=== PATIENT | male | born 1985 | race Caucasian/White ===

== ENCOUNTER 2024-03-15 10:31 | Outpatient (AMB) | payer MEDICAID, SELFPAY ==
--- NOTE | 2024-03-15 10:41 | A.OFFVIS_ITS ---
Vital Signs 3 03/15/24 10:48 Height 6 ft 2 in Weight 303 lb BMI 38.9 BP 145/74 H Blood Pressure Location Lt brachial Position Sitting Respiration 16 Pulse 87 Pulse Source Pulse Oximeter Pulse Oximetry (%) 97 Oxygen Delivery Method Room Air Intake Visit Reasons: Lumbar Radiculitis Allergies No Known Allergies Allergy (Verified 03/15/24 10:49) Medication List - Last Reconciled 03/15/24 by Renu Mayers LPN diazepam 2 mg PO DAILY erenumab-aooe (Aimovig Autoinjector) 70 mg subcut ONCE famotidine 40 mg PO BID gabapentin 600 mg PO DAILY lamotrigine 100 mg PO BID lithium carbonate ER 450 mg PO DAILY sumatriptan succinate 100 mg PO DAILY verapamil ER 240 mg PO DAILY HPI HPI Lumbar Radiculitis: Details: 38-year-old male who presents today to the office for evaluation of lumbar radiculitis. He reports low back pain. He had left L5-S1 epidural steroid injection on December 21, 2023 that provided few hours of relief. The pain returned to left leg. He also has concurrent sacroiliac joint. The gabapentin has provided some relief. He is trying to lose some weight before trying any surgical interventions. He has seen some surgeons in the past for scoliosis but deferred surgery. He had radiofrequency ablation a few years ago which provided good relief for an year. Review of Systems Const All systems reviewed & are unremarkable except as noted in HPI and below Physical Exam Vital Signs: Last Vital Signs Pulse 87 03/15/24 10:48 Resp 16 03/15/24 10:48 BP 145/74 H 03/15/24 10:48 Pulse Ox 97 03/15/24 10:48 Oxygen Delivery Method Room Air 03/15/24 10:48 BMI result Body Mass Index 38.9 General: Appears afebrile. Alert and oriented. Mood and affect appropriate. Follows and participates in conversation appropriately. Respiratory effort is unlabored. Able to transition from sit to stand unassisted. Ambulates with bilaterally normal heel strike and toe off. Lumbar range of motion reproduces pain. There is tenderness and pain in the left lower region with axial rotation and loading. Results Reviewed Results Reviewed: Assessment & Plan Assessment & Plan (1) Scoliosis: Code(s): M41.9 - Scoliosis, unspecified Category: Medical Plan He has multifactorial issues including multi-level foraminal stenosis secondary to scoliosis, accelerated multi-level degenerative changes, vertebral endplate changes with edema at the L4-5 plates as well as lumbar spondylosis and intervertebral degeneration. We discussed surgical correction of his alignment to arrest the progression of his multifactorial symptoms. He is not interested in surgical intervention at this time and would like to get some reliefs to be able to get back to around 250 lbs. weight goal before considering any surgical intervention. I discussed radiofrequency ablation vs. temporary peripheral nerve stimulator vs. BVN ablation as potential treatment options for his facet and endplate mediated axial low back pain. He has previously had an RFA that provided good relief for up to a year. I offered to do that again with the caveat given his worsening scoliosis. It may be difficult to target medial branches reliably for an RFA. The alternative would be to try PNS for axial low back pain secondary to a facet degeneration. He is on board with that plan. So, we will plan him for an L3 medial branch left PNS trial with the [employer] device. I provided him a brochure for that. I also provided him a brochure for BVN ablation procedure to be considered in the future if his axial low back pain does not respond to peripheral nerve stimulator and radiofrequency ablation alone. Patient will call us when he is ready to proceed with the scheduling of the L3 medial branch stimulator. Discussed the risks and benefits of the procedure with the patient in detail. All questions were answered. The patient is on board with the plan. Justification for interventional therapy: ? Patient with average pain > 6/10 ? Patient has exhausted conservative therapy epidural steroid injection and radiofrequency ablation ? Patient unable to tolerate physical therapy due to pain . Patient has a good understanding of their pain condition and has appropriate mental and social support. Scribed for Dr. Mane by Yordan Hubbard, medical anthropology director, on 03/15/2024. I, Dr. Mane, have personally reviewed and agree with the information entered by the scribe. Coding Level of Care Code New Pt Level 4 (36815) Diagnoses Scoliosis M41.9
[2024-03-15 10:48] VITALS: BP 145/74; PULSE 87; RESP 16; O2SAT 97; BMI 38.9
== END 2024-03-15 11:17 | disposition home or self-care (01) ==
PROVIDERS: PCP Family Medicine; Visit Provider Internal Medicine
DX: M41.9 Scoliosis, unspecified (principal)
CPT/HCPCS: 99204

== ENCOUNTER → 2024-03-15 10:31 | Outpatient (BNVA) | payer MEDICAID, SELFPAY | PROVIDERS: PCP Family Medicine; Visit Provider Internal Medicine | DX: M41.9 Scoliosis, unspecified (principal); M54.16 Radiculopathy, lumbar region | CPT/HCPCS: 99202 ==